=== PATIENT | male | born 1970 | race Caucasian/White ===

== ENCOUNTER 2016-11-24 06:52 | Inpatient (IN) | payer MEDICARE ==
[2016-11-22 10:49] LABS: HEMATOCRIT 41.6 % (40.0-51.0); HEMOGLOBIN 14.8 g/dL (13.6-17.8)
[2016-11-22 11:02] LABS: BUN (BLOOD UREA NITROGEN) 17 MG/DL (6-23); CALCIUM, SERUM 8.6 MG/DL (8.5-10.4); CHLORIDE, SERUM 97 MMOL/L (96-112); CO2 (CARBON DIOXIDE) 27 MMOL/L (24-34); CREATININE 1.16 MG/DL (0.70-1.30); GFR AFRICAN AMERICAN 87 ML/MIN (>=60); GFR NON AFRICAN AMERICAN 75 ML/MIN (>=60); POTASSIUM, SERUM 4.2 MMOL/L (3.5-5.3); SODIUM, SERUM 135 MMOL/L (135-148)
[2016-11-22 11:05] LABS: GLUCOSE, SERUM 257 MG/DL (60-99)
--- NOTE | ~2016-11-24 | CN ---
Consultation Report [facility] [address]. [address] NAME: BYRON ROBERTS JR : 70 STATUS : ADM IN PAT#: [id number] AGE: 46 ADM/REG DATE : 11/24/16 MR#: [id number] REPORT SERV DATE: 11/24/16 DICTATED BY: MAREK MOMIN DATE: 11/24/16 REPORT STATUS : Draft TRANSCRIBED BY: MODL DATE: 11/24/16 CONSULT DATE OF CONSULTATION: REASON FOR CONSULTATION: Diabetes management. HISTORY OF PRESENT ILLNESS: The patient is a 46-year-old male who presented after having complaints of mid back radiating pain with numbness in the thoracic spine who has been followed as an outpatient, level ranges from mild to severe at 9/10 at its worst, has tried supportive treatments, is located mid back and numbness going down, has performed PT with [facility] but has been pain limiting on progress, occasional complaints of bowel and bladder issues with occasional incontinence and taking Valium, Klonopin, baclofen for pain control including opioids without significant improvement. For his diabetes, the patient reports that he is typically well controlled with his metformin, range around 150s to 140s. In his opinion, this is well controlled. He says when he has pain episodes, it goes up to 200+ but when he drinks soda pops and even with other not diet sodas, he still does not have any problems with keeping the blood sugar under control. The patient does take occasional sliding scale insulin and metformin and knows when he is getting high blood sugars because he gets sweaty, has not had too many episodes with low blood sugars. PAST MEDICAL HISTORY: Noted for hypertension, nephrolithiasis, fibromyalgia, type 2 diabetes, coronary artery disease with stent in 2012, hypertestosteronism, PTSD, DJD, and incarcerated ventral hernia. REVIEW OF SYSTEMS: A 10-point review of systems negative except that noted in the HPI. PAST SURGICAL HISTORY: Back fusion, shoulder tumor history, appendectomy, gallbladder, and rectal fissure surgery. FAMILY HISTORY: Cancer, diabetes, and ND. SOCIAL HISTORY: Has children. Reports . No tobacco, alcohol, or illicits. PHYSICAL EXAMINATION: VITAL SIGNS: Blood pressure 148/89, O2 of 96 on 3 L, temperature 98.8, respirations 18, and pulse 98. GENERAL: Obese. Mild discomfort from pain. HEENT: Head normocephalic. Eyes no scleral icterus. EOMI. ENT, nares patent. Moist mucous membranes. CHEST: Chest wall does have a surgical site with drain. NECK: No JVD. LUNGS: Clear to auscultation. No wheezes or rales. Consultation Report [facility] [address] [place] [address] NAME: BYRON ROBERTS JR : 70 STATUS : ADM IN [facility]#: [id number] AGE: 46 ADM/REG DATE : 11/24/16 MR#: [id number] REPORT SERV DATE: 11/24/16 DICTATED BY: MAREK MOMIN DATE: 11/24/16 REPORT STATUS : Draft TRANSCRIBED BY: DEZ DATE: 11/24/16 CARDIAC: Mildly tachycardic but no rubs or gallops. No pedal edema. GI: Soft, nontender, nondistended. Bowel sounds positive. : Deferred. MUSCULOSKELETAL: Moves all extremities x4. Sensation still grossly intact. PSYCHIATRIC: Appropriate mood and affect. LABS: Blood sugars today ranging from 194 to 261. ASSESSMENT AND PLAN: 1. Diabetes type 2. 2. Hypertension. 3. Low back pain. 4. Anxiety. 5. Chronic ischemic history. 6. Patient for diabetes type 2. Sliding scale insulin. Hold metformin. Check A1c. Diabetic education. Start Levemir while inpatient and titrate needs with sliding scale level 2 until p.o. fully as tolerated. We will need further education about diet requirements. 7. Hypertension, monitor, restart lisinopril and amlodipine. Increase the home dose when confirmed with pharmacy. 8. Low back pain and radiculopathy per primary, does have p.r.n. IV and p.o. pain medications and on prior multiple benzos on arrival. Currently mental status clear. Blood pressure-actually mildly hypertensive. 9. Anxiety. Continue home medications as vitals tolerate. 10.Questionable ischemic changes history, has had coronary artery disease and stent placed in 2012 with Cardiology in [facility], currently in transition before re-establishing care with local cardiology. We will defer to primary. We will check EKG and postop troponin. Denies any acute chest pain at this time. All questions answered with the patient at bedside. Care will be followed by Medicine team in a.m. DDN/MODL Marek Momin MD / [id number] CC: Tello Briscoe II, M.D.
--- NOTE | ~2016-11-24 | OP ---
Record Of Operation [facility] [address] [place]. [address] NAME: BYRON ROBERTS JR : 70 STATUS : ADM IN PAT#: [id number] AGE: 46 ADM/REG DATE : 11/24/16 MR#: [id number] REPORT SERV DATE: 11/26/16 DICTATED BY: CARIDAD BRISCOE II DATE: 11/26/16 REPORT STATUS : Draft TRANSCRIBED BY: MODRoni DATE: 11/26/16 DATE OF PROCEDURE: 11/24/2016 PREOPERATIVE DIAGNOSES: 1. Left upper extremity radiculopathy with herniated nucleus pulposus. 2. C5-6 and C6-7 foraminal stenosis. POSTOPERATIVE DIAGNOSES: 1. Left upper extremity radiculopathy with herniated nucleus pulposus. 2. C5-6 and C6-7 foraminal stenosis. PROCEDURE: 1. C5-6, C6-7 total disk replacement. 2. Use of the microscope. SURGEON: Caridad Briscoe M.D. FLUIDS: 1 L lactated Ringer's. ESTIMATED BLOOD LOSS: 50 mL. DRAINS: One drain. COMPLICATIONS: None. IMPLANTS: LDR Mobi-C. PREOPERATIVE HISTORY: This is a friendly, 46-year-old gentleman, who reports neck pain with severe pain radiating into the left periscapular region and down the arm consistent with radiculopathy. We discussed the pros and cons of surgery. We discussed the pros and cons of ACDF versus total disk replacement. We discussed the data regarding the total disk replacement versus ACDF. Overall, I felt both were good options for him but some of the data seems to suggest that the total disk replacement may be indeed superior on a two-level patient. DESCRIPTION OF PROCEDURE: After informed consent was obtained, the patient was brought to the operating room at his request and general anesthesia achieved. He was placed in supine position. The neck and iliac crest were prepped and draped in a sterile fashion. A right- sided longitudinal incision was performed followed by subperiosteal exposure following completion of the retropharyngeal approach. The belt line feeder retractors were placed underneath the longus colli muscles. The [place] pins were placed from C5-C7. The microscope was now brought into place. Under microscopic visualization, the C6-7 level was now addressed with diskectomy. The endplates were now prepared. The pituitary rongeurs, Kerrison rongeurs, and the curettes were then used to prepare the disk space using standard technique. The concavity of C6 was Record Of Operation [facility] [address] [place]. [address] NAME: BYRON ROBERTS JR : 70 STATUS : ADM IN PAT#: [id number] AGE: 46 ADM/REG DATE : 11/24/16 MR#: [id number] REPORT SERV DATE: 11/26/16 DICTATED BY: CARIDAD BRISCOE II DATE: 11/26/16 REPORT STATUS : Draft TRANSCRIBED BY: MODL DATE: 11/26/16 maintained. The posterior vertebral body osteophytes were now removed. The posterior longitudinal ligament was also removed to further decompress the canal and foramen and also to ensure the adequacy of the decompression. The system was then trialed and the appropriate size total disk replacement chosen and placed at C6-7. Multiplanar imaging was able to visualize the C6-7 space despite his large shoulders. This was appropriately placed. Next, the [place] pin was removed at C7, and we proceeded with a similar technique at C5-6 with removal of the disk and preparation of the endplates. The posterior ligament was removed and the disk material removed from the foramen. The area was now trialed under fluoroscopy. The appropriate size total disk replacement was now chosen and placed at C5-6. Again, this was confirmed radiographically with fluoroscopy. Acceptable position was again confirmed of both endplates. At this point, a deep drain was placed for the fact that we were going to keep him at least one night. I had put this in place for preparation of any potential seroma. Overall, the area was hemostatic prior to closure. The area was now closed and the patient was extubated and transferred to PACU in stable condition. I spoke with his mother postoperatively and discussed the procedure as well as the postoperative plan. MELANIE/DEZ Caridad Briscoe II, M.D. / [id number] CC: Roe Hillman II, KELLY R.
--- NOTE | ~2016-11-24 | DS ---
Discharge Summary [facility] [address] [place]. [address] NAME: BYRON ROBERTS JR : 70 STATUS : DIS IN PAT#: [id number] AGE: 46 ADM/REG DATE : 11/24/16 MR#: [id number] REPORT SERV DATE: 12/06/16 DICTATED BY: CARIDAD BRISCOE II DATE: 12/05/16 REPORT STATUS : Draft TRANSCRIBED BY: DEZ DATE: 12/05/16 Data Collection from hospitalization DISCHARGE DIAGNOSES: 1. Left upper extremity radiculopathy with herniated nucleus pulposus. 2. C5-6 and C6-7 foraminal stenosis. 3. Hypertension. 4. Type 2 diabetes. 5. Nephrolithiasis. 6. Fibromyalgia. 7. Coronary artery disease. 8. Hypertestosteronism. 9. Posttraumatic stress disorder. 10.Degenerative joint disease. 11.Incarcerated ventral hernia. CONSULTATION: Dr. Julio Perez. PROCEDURES: C5-6, C6-7 total disk replacement, use of microscope, 11/24/2016. PATHOLOGY: Bone and soft tissue, cervical spine. Laminectomy-fibrocartilage consistent with intervertebral disk. Fragment of benign bone. DISCHARGE MEDICATIONS: Norvasc 10 mg daily, aspirin 81 mg daily, Lioresal 10 mg three times a day as needed, Klonopin 0.5 mg four times a day as needed, Valium 5 mg three times a day as needed or 5-10 mg every six hours as instructed, Sinequan 25 mg at bedtime, Prozac 80 mg at bedtime, Neurontin 300 mg three times a day as needed, Busy 7.5/325 one tablet three times a day as needed, Dilaudid 4 mg every four hours as needed, Novolin R as instructed, Zestril 10 mg twice a day, Glucophage 500 mg twice a day, Phenergan 25 mg every six hours as needed, Ambien 10 mg at bedtime. CONDITION AT DISCHARGE: Stable. DISPOSITION: The patient was discharged home on an 1800-calorie diabetic diet with activities as instructed. He would follow up with me, 12/21/2016. HOSPITAL COURSE: This is a 46-year-old man, who complained of thoracic related symptoms. He had stated that his pain level had been a 9/10. The pain was located in his mid back and radiates down to the low back. He did feel some numbness in his thoracic spine. The patient was found to have left upper extremity radiculopathy with herniated nucleus pulposus. He has C5-6 and C6-7 foraminal stenosis. Treatment options were discussed and it was elected to proceed with surgical intervention. He was admitted to the hospital at this time for further evaluation and treatment. Upon admission, the patient was taken to the operating room, where he underwent the above- mentioned procedure. He tolerated this well and there were no complications. Postoperatively, he was seen by Dr. Julio Perez regarding diabetes management. The patient reports that he is typically well controlled with his metformin. In his opinion, his Discharge Summary [address] [place]. [address] NAME: BYRON ROBERTS : 70 STATUS : DIS IN PAT#: [id number] AGE: 46 ADM/REG DATE : 11/24/16 MR#: [id number] REPORT SERV DATE: 12/06/16 DICTATED BY: CARIDAD BRISCOE II DATE: 12/05/16 REPORT STATUS : Draft TRANSCRIBED BY: DEZ DATE: 12/05/16 diabetes is well controlled. Sliding scale insulin was going to be started. Metformin was held. We were going to check a hemoglobin A1c. He would undergo diabetes education. Levemir would be started while he was an inpatient and we would titrate needs with sliding scale level 2 until he could tolerate oral intake. Lisinopril and amlodipine would be restarted for his hypertension. We would increase the home dose when confirmed with pharmacy. His home anxiety medications were continued. EKG and postop troponin were going to be checked. On postop day #1, he had no shortness of breath. He complained of some insomnia. He had no other complaints. His blood sugars were still elevated. Levemir and sliding scale insulin level 2 were continued. Urinalysis was going to be checked. He had leukocytosis. On postop day 2, his white count was 12.2. He had no new complaints. Levemir was continued. Leukocytosis was improving. Discharge planning was performed. On 11/27/2016, he was able to get out of bed well. Discharge instructions were given. Due to his improved and stable condition, he was discharged home with the above-stated instructions. Information collected by: Danae Rodriguez I submit the above information as my discharge summary. NEMESIO/DEZ Caridad Briscoe II, M.D. / [id number] CC: Roe Hillman II, KELLY R
[~2016-11-24 06:52] MED LIST: AFRIN15 NAS; AMB10 PO; ASAB PO; B121000P IM; B121000P PO; CELEXA20 PO; DEPO-TESTOS100 MG/ML IM; DOX25 PO; FLEX PO; GLUCOPHAGE1000 MG PO; GLUCOTROL5 PO; GLUCPH PO; HUMALOG; HYDROCHLOROT25 MG PO; INSNOVN SC; INSNOVR; INSNOVR SC; INSULIN SC; KDUR10 PO; KLONO1 PO; KLONO2 PO; KLONO5 PO; LANTUS; LIDODERM T; LIOR10 PO; LIPITOR40 PO; LOP50 PO; LORTAB10 PO; MELATONIN5 M1 PO; MEP50TAB PO; METHOC500B PO; MSIMMR15 PO; MULTIPLE VIT PO; NEBULIZER SOLUTION INH; NORCO1 TA2 PO; NORV10 PO; NORV5 PO; NUCYNTA; NUCYNTA100 MG PO; PAXIL30 MG PO; PCET PO; PERCOCET1 TA4 PO; PHENERGAN PO; PR25 PO; PRIN20 PO; PROAIR HFA INH; PROZAC40 MG PO; RISP2 PO; SEROQUEL1C PO; STERAPRED5 MG; SYN.025B PO; TESTOSTERONE IM; TOPXL100 PO; TOPXL50 PO; TRAZODONE150 MG PO; TUMSROLL PO; V5 PO; VALIUM10 MG PO; VIST50 PO; VITAMIN B-12; VITAMIN C; ZESTRIL10 MG PO; ZESTRIL20 MG PO; ZESTRIL40 MG PO; ZOL50 PO; [UNRECOGNIZED DRUG - OTHER] OT
[2016-11-25 08:17] LABS: HEMATOCRIT 41.9 % (40.0-51.0); MEAN CORPUS HGB CONC 35.8 g/dL (32.0-36.0); MEAN CORPUSCULAR HEMOGLOB 33.3 pg (26.0-34.0); MEAN PLATELET VOLUME 9.6 fL (9.2-13.0); PLATELET COUNT 294 10/3/uL (150-400); RED CELL COUNT 4.51 10/6/uL (4.7-6.1)
[2016-11-25 08:18] LABS: MEAN CORPUSCULAR VOLUME 92.9 fL (80-100); WHITE BLOOD CELLS 17.2 10/3/uL (4.5-10.5)
[2016-11-25 08:19] LABS: MANUAL DIFF YES %
[2016-11-25 08:31] LABS: BUN (BLOOD UREA NITROGEN) 18 MG/DL (6-23); CALCIUM, SERUM 8.7 MG/DL (8.5-10.4); CHLORIDE, SERUM 99 MMOL/L (96-112); CO2 (CARBON DIOXIDE) 26 MMOL/L (24-34); CREATININE 1.02 MG/DL (0.70-1.30); GFR AFRICAN AMERICAN 102 ML/MIN (>=60); GFR NON AFRICAN AMERICAN 88 ML/MIN (>=60); GLUCOSE, SERUM 271 MG/DL (60-99); SODIUM, SERUM 135 MMOL/L (135-148); TROPONIN I <0.02 NG/ML (<0.05)
[2016-11-25 08:34] LABS: POTASSIUM, SERUM 4.6 MMOL/L (3.5-5.3)
[2016-11-25 08:53] LABS: BAND NEUTROPHILS 2 %; LYMPHOCYTES 11 %; LYMPHOCYTES ABSOLUTE (CALC) 1.89 10/3/uL (0.67-4.30); MONOCYTES 9 %; MONOCYTES ABSOLUTE (CALC) 1.55 10/3/uL (0.21-1.20); NEUTROPHILS ABSOLUTE (CALC) 13.76 10/3/uL (2.02-8.40); PLATELET ESTIMATE ADQ (ADEQUATE); RBC MORPHOLOGY NORM (NORMAL); SEGMENTED NEUTROPHIL (0) 78 %; TOTAL NUCLEATED CELLS 100
[2016-11-25 17:02] LABS: ASCORBIC ACID (UR NOT ORDER) NEG (NEG); BILIRUBIN, URINE NEGATIVE (NEG); KETONE, URINE NEGATIVE (NEG); LEUKOCYTE ESTERASE(NOT OR NEG (NEG); WBC (NOT ORDERED) (RFLEX) < 1 (0-5)
[2016-11-26 05:00] LABS: BASOPHILS 0.4 %; BASOPHILS ABSOLUTE 0.05 10/3/uL (0.0-0.16); EOSINOPHILS 0.8 %; HEMATOCRIT 43.5 % (40.0-51.0); IMMATURE GRANULOCYTES 1.3 %; IMMATURE GRANULOCYTES ABSOLUTE 0.16 10/3/uL (0.0-0.11); LYMPHOCYTES 27.8 %; LYMPHOCYTES ABSOLUTE 3.39 10/3/uL (0.67-4.30); MEAN CORPUS HGB CONC 34.5 g/dL (32.0-36.0); MEAN CORPUSCULAR HEMOGLOB 32.7 pg (26.0-34.0); MEAN CORPUSCULAR VOLUME 94.8 fL (80-100); MEAN PLATELET VOLUME 9.8 fL (9.2-13.0); MONOCYTES 9.1 %; MONOCYTES ABSOLUTE 1.11 10/3/uL (0.21-1.20); NEUTROPHILS 60.6 %; PLATELET COUNT 275 10/3/uL (150-400); RBC DISTRIBUTION WIDTH 12.8 % (12.0-16.0); RED CELL COUNT 4.59 10/6/uL (4.7-6.1); WHITE BLOOD CELLS 12.2 10/3/uL (4.5-10.5)
[2016-11-26 05:01] LABS: MANUAL DIFF NO %
[2016-11-26 05:13] LABS: BUN (BLOOD UREA NITROGEN) 18 MG/DL (6-23); CALCIUM, SERUM 8.6 MG/DL (8.5-10.4); CHLORIDE, SERUM 98 MMOL/L (96-112); CO2 (CARBON DIOXIDE) 26 MMOL/L (24-34); CREATININE 0.96 MG/DL (0.70-1.30); GFR AFRICAN AMERICAN 109 ML/MIN (>=60); GFR NON AFRICAN AMERICAN 94 ML/MIN (>=60); GLUCOSE, SERUM 234 MG/DL (60-99); POTASSIUM, SERUM 4.3 MMOL/L (3.5-5.3); SODIUM, SERUM 135 MMOL/L (135-148)
[2016-11-27] MEDS ORDERED: DIL4TAB PO (07:54)
[2016-11-27] MEDS ORDERED: NEUR300 PO (07:54)
[2016-11-27] MEDS ORDERED: V5 PO (07:55)
[2016-12-12] MEDS ORDERED: PR25 PO (02:16)
[2016-12-12] MEDS ORDERED: NORV10 PO (02:17)
[2016-12-12] MEDS ORDERED: NEUR300 PO (02:17)
[2016-12-12] MEDS ORDERED: PRIN10 PO (02:17)
[2016-12-12] MEDS ORDERED: DIL4TAB PO (02:18)
[2016-12-12] MEDS ORDERED: V5 PO (02:23)
[2016-12-12] MEDS ORDERED: NORCO1 TA2 PO (02:25)
[2016-12-12] MEDS ORDERED: AMB10 PO (02:25)
[2016-12-12] MEDS ORDERED: DOX25 PO (02:26)
[2016-12-12] MEDS ORDERED: PROZAC40 MG PO (02:26)
[2016-12-12] MEDS ORDERED: KLONO5 PO (02:27)
[2016-12-12] MEDS ORDERED: LIOR10 PO (02:28)
[2016-12-12] MEDS ORDERED: GLUCPH PO (02:29)
[2016-12-12] MEDS ORDERED: LANTUSCART SC (02:31)
[2016-12-13] MEDS ORDERED: PYR200 PO (09:15)
== END 2016-11-27 13:53 | disposition home or self-care (01) | DRG 518 ==
LOC: SDC/OF 06:52 → PACU 12:50 → 3SO 14:46
PROVIDERS: Orthopaedic Surgery; Student in an Organized Health Care Education/Training Program
PROC: 0RR30JZ Replacement of Cervical Vertebral Disc with Synthetic Substitute, Open Approach (ICD-10-PCS; principal; 2016-11-24 08:45)
DX: M50.122 Cervical disc disorder at C5-C6 level with radiculopathy (principal); I10 Essential (primary) hypertension; E11.9 Type 2 diabetes mellitus without complications; F41.9 Anxiety disorder, unspecified
CPT/HCPCS: 71010; 76000; 80048; 81001; 82962; 83036; 83735; 84484; 85014; 85018; 85025; 87641; 88304; 93005; A9270-GY; C1889; J0360; J0690; J1170; J2250; J2270; J2405; J2550; J2710; J3010; J3370

== ENCOUNTER 2016-12-22 06:51 | Emergency (ER) | payer MEDICARE ==
[2016-12-22 06:00] LABS: HEMATOCRIT 39.8 % (40.0-51.0); HEMOGLOBIN 14.2 g/dL (13.6-17.8); MEAN CORPUS HGB CONC 35.7 g/dL (32.0-36.0); MEAN CORPUSCULAR HEMOGLOB 32.6 pg (26.0-34.0); MEAN CORPUSCULAR VOLUME 91.5 fL (80-100); MEAN PLATELET VOLUME 9.9 fL (9.2-13.0); PLATELET COUNT 273 10/3/uL (150-400); RBC DISTRIBUTION WIDTH 12.6 % (12.0-16.0); RED CELL COUNT 4.35 10/6/uL (4.7-6.1); WHITE BLOOD CELLS 8.6 10/3/uL (4.5-10.5)
[2016-12-22 06:01] LABS: MANUAL DIFF YES %
[2016-12-22 06:06] LABS: PARTIAL THROMBO TIME 24.4 SEC (22.5-37.2); PROTIME (NOT ORD) 13.2 SEC (12.0-14.5)
[2016-12-22 06:15] LABS: ALBUMIN 3.6 G/DL (3.5-5.0); BUN (BLOOD UREA NITROGEN) 18 MG/DL (6-23); CALCIUM, SERUM 8.7 MG/DL (8.5-10.4); CHEST PAIN PROFILE TAT 0 Hrs 21 Mins; CHLORIDE, SERUM 99 MMOL/L (96-112); CO2 (CARBON DIOXIDE) 23 MMOL/L (24-34); CREATININE 1.18 MG/DL (0.70-1.30); GFR AFRICAN AMERICAN 85 ML/MIN (>=60); GFR NON AFRICAN AMERICAN 74 ML/MIN (>=60); GLUCOSE, SERUM 285 MG/DL (60-99); SGPT(ALT) 130 U/L (5-65); SODIUM, SERUM 135 MMOL/L (135-148); TOTAL BILIRUBIN 0.5 MG/DL (0-1.2); TOTAL PROTEIN 7.7 G/DL (6.0-8.5); TROPONIN I <0.02 NG/ML (<0.05)
[2016-12-22 06:16] LABS: POTASSIUM, SERUM 4.1 MMOL/L (3.5-5.3)
[2016-12-22 06:17] LABS: ALKALINE PHOSPHATASE 121 U/L (45-117); DIRECT BILIRUBIN < 0.1 MG/DL (0.0-0.4); INDIRECT BILIRUBIN(NOT ORDER) 0.4 MG/DL (0.1-0.9); SGOT(AST) 88 U/L (5-40)
[2016-12-22 06:24] LABS: ASCORBIC ACID (UR NOT ORDER) NEG (NEG); BILIRUBIN, URINE NEGATIVE (NEG); ER URINALYSIS TAT 0 Hrs 09 Mins; KETONE, URINE NEGATIVE (NEG); LEUKOCYTE ESTERASE(NOT OR NEG (NEG); NITRITE (URINE) POS (NEG); WBC (NOT ORDERED) (RFLEX) 25 (0-5)
[2016-12-22 06:29] LABS: BAND NEUTROPHILS 2 %; BASOPHILS 3 %; BASOPHILS ABSOLUTE (CALC) 0.26 10/3/uL (0.0-0.16); ER DIFF TAT 0 Hrs 35 Mins; IMMATURE GRANS ABSOLUTE (CALC) 0.17 10/3/uL (0.0-0.11); LYMPHOCYTES 23 %; LYMPHOCYTES ABSOLUTE (CALC) 1.98 10/3/uL (0.67-4.30); METAMYELOCYTES 2 %; MONOCYTES 5 %; MONOCYTES ABSOLUTE (CALC) 0.43 10/3/uL (0.21-1.20); NEUTROPHILS ABSOLUTE (CALC) 5.76 10/3/uL (2.02-8.40); SEGMENTED NEUTROPHIL (0) 65 %; TOTAL NUCLEATED CELLS 100
[2016-12-22 06:30] LABS: PLATELET ESTIMATE ADQ (ADEQUATE); RBC MORPHOLOGY NORM (NORMAL)
[2016-12-22 06:40] LABS: LACTATE 2.1 MMOL/L (0.3-2.4)
[~2016-12-22 06:51] MED LIST changes: +DIL4TAB PO; +LANTUSCART SC; +NEUR300 PO; +PRIN10 PO; +PYR200 PO
== END 2016-12-22 09:08 | disposition home or self-care (01) ==
LOC: ER 06:51
PROVIDERS: Emergency Medicine
DX: N39.0 Urinary tract infection, site not specified (principal); Z76.5 Malingerer [conscious simulation]; I10 Essential (primary) hypertension; E11.9 Type 2 diabetes mellitus without complications; Z87.442 Personal history of urinary calculi; Z95.5 Presence of coronary angioplasty implant and graft; Z88.8 Allergy status to other drugs, medicaments and biological substances; Z79.4 Long term (current) use of insulin; Z79.899 Other long term (current) drug therapy
CPT/HCPCS: 71010; 74176; 80048; 80076; 81001; 83605; 83690; 83735; 84145; 84484; 85025; 85610; 85730; 87040; 87086; 87328; 87329; 87493; 87493-59; 89055; 93005; 96374; 96375; 99285; A9270-GY; J1885; J2765

== ENCOUNTER 2017-01-08 22:56 | Inpatient (IN) | payer MEDICARE ==
--- NOTE | ~2017-01-08 | HP ---
History And Physical [facility] [address] [place]. [address] NAME: BYRON ROBERTS JR : 70 STATUS : ADM IN PAT#: [id number] AGE: 46 ADM/REG DATE : 01/09/17 MR#: [id number] REPORT SERV DATE: 01/09/17 DICTATED BY: LAURA PALOMARES DATE: 01/09/17 REPORT STATUS : Draft TRANSCRIBED BY: MODL DATE: 01/09/17 DATE OF ADMISSION: 01/09/2017 CHIEF COMPLAINT: A 46-year-old male with severe chronic polypharmacy, but now presenting with a host of complaints, most significant a prolonged multiple syncopal episodes. HISTORY OF PRESENT ILLNESS: The patient's history was obtained through an interview with the patient, coupled with review of [facility] medical records. The patient five weeks ago presented for a cervical spine surgery under the care Dr. Briscoe. He states that he has had difficult recovery from that surgery with increased need for his chronic pain and anxiety medications including benzodiazepines and narcotics. It is in this context that he also developed urinary obstruction about two weeks ago and was seen by Dr. Casimiro Vigil, urologist. He has had a difficult recovery over this last month and reports a 22-pound weight gain over that period of time despite having what he describes as a very poor appetite and almost daily nausea. But his worst complaint has been a recurrent syncope that he suffered over the last several days. He has developed new onset vertigo with a spinning of the room. He states that sometimes he is walking and he will fall over to the side and do things like bump into jimenez and then he becomes lightheaded as well. His worst syncopal episodes he describes it as collapsing and being completely unresponsive for 7 minutes as his family reports to him. Another significant complaint has been intractable nausea and vomiting. He states that the vomiting has occurred on a daily basis for several days now and it contributes to difficulty eating. He also describes diaphoresis, severe night sweats. He states that for several nights he has been waking up "wringing wet" and has to change his clothes. He also states that his diabetes has been difficult to control recently. For about a week, he has seldom seen a blood sugar of less than 300 or 400. He also will check his blood pressure at home and notes that it can get as high as 220/120. His pain complaints are multiple, but narrowing it down to two locations, he states that his neck hurts from his post-surgical site. He states that "it is at the bottom of his neck without radiation," a sharp aching, throbbing, quality pain, 8/10 severity. He also describes upper abdominal discomfort related to his nausea and vomiting. He describes the quality is "like a brick" a 9/10 severity. REVIEW OF SYSTEMS: Otherwise, a 14-point review of systems was obtained and was negative. History And Physical [address] [address] NAME: BYRON ROBERTS JR : 70 STATUS : ADM IN [facility]#: [id number] AGE: 46 ADM/REG DATE : 01/09/17 MR#: [id number] REPORT SERV DATE: 01/09/17 DICTATED BY: LAURA PALOMARES DATE: 01/09/17 REPORT STATUS : Draft TRANSCRIBED BY: DEZ DATE: 01/09/17 PAST MEDICAL HISTORY: 1. Diabetes, hemoglobin A1c of 7.8, 11/19/2016. 2. Coronary artery disease, status post stent placement at [facility]. 3. Nephrolithiasis and urinary obstruction with ureteral stent placement under the care of Dr. Vigil. 4. Chronic pain management and polypharmacy. 5. Anxiety with posttraumatic stress disorder. 6. Hypotestosteronism. 7. Fatty liver disease. 8. An uncertain endocrine disorder with a history of elevated prolactin and elevated TSH. 9. Negative Holter monitor in October 2016. PAST SURGICAL HISTORY: 1. Lumbar spine surgery x2. 2. Cervical spine surgery just about five weeks ago. 3. Shoulder surgery x3. 4. Appendectomy. 5. Cholecystectomy. 6. Rectal fissure. 7. Ventral hernia repair. 8. Rhinoplasty. 9. Knee surgery x2. ALLERGIES: TO LATEX AND ZOFRAN. SOCIAL HISTORY: No tobacco abuse. No alcohol abuse. He is . He has children, ages 9 and 12. He is a patient who is on disability. FAMILY HISTORY: Includes pancreatic cancer, diabetes, and heart disease. CURRENT MEDICATIONS: Include Norvasc 10 mg p.o. daily, baclofen 10 mg p.o. t.i.d., Klonopin 0.5 mg p.o. four times a day, Valium 5 mg p.o. t.i.d., doxepin 25 mg at bedtime, Prozac 40 mg p.o. b.i.d., Neurontin 300 mg p.o. t.i.d., hydrocodone 7.5 p.o. t.i.d., Dilaudid 2 mg to 4 mg every four hours, ibuprofen 800 mg p.o. t.i.d., Lantus 30 units subcutaneous twice a day, lisinopril 10 mg p.o. b.i.d., metformin 500 mg p.o. b.i.d., Seroquel 50 mg to 100 mg at bedtime, Phenergan p.r.n., Ambien 10 mg p.o. q.h.s. PHYSICAL EXAMINATION: VITAL SIGNS: Temperature 97.0, pulse 124, blood pressure 187/95, respiratory rate 26, O2 saturation 94% on room air. GENERAL: An ill-appearing male, describing many complaints, but he does not look in particular distress while I am evaluating him. HEENT: Pupils equal, round, and reactive to light. No conjunctival pallor. No scleral icterus. Nares are patent. Oropharynx is clear of obstruction. Moist mucous membranes. NECK: Trachea midline. No thyromegaly. LYMPHS: No cervical lymphadenopathy. No supraclavicular lymphadenopathy. History And Physical [address] [address] NAME: BYRON ROBERTS JR : 70 STATUS : ADM IN [facility]#: [id number] AGE: 46 ADM/REG DATE : 01/09/17 MR#: [id number] REPORT SERV DATE: 01/09/17 DICTATED BY: LAURA PALOMARES DATE: 01/09/17 REPORT STATUS : Draft TRANSCRIBED BY: DEZ DATE: 01/09/17 RESPIRATORY: Clear to auscultation at bases. No wheezes, rales, or rhonchi. Normal respiratory effort. CARDIOVASCULAR: Tachycardic. Regular rhythm. No murmurs, rubs, or gallops. No extremity edema is appreciated. ABDOMEN: Significant epigastric abdominal pain, but no guarding, no rebound. No hepatosplenomegaly. DERMATOLOGICAL: Warm and dry extremities. No pallor. No cyanosis. PSYCHIATRIC: Normal affect. Pleasant mood. He is alert and oriented x3. LABORATORY DATA: White blood cell count 7.1, hemoglobin 14, hematocrit 40, platelets 230. Sodium 136, potassium 4.0, chloride 103, bicarb 24, BUN 13, creatinine 1.32, glucose 344. INR 1.0. Lactic acid 0.8. Acetone level negative. Troponin negative. STUDIES: 1. Chest x-ray by my own evaluation shows no acute cardiopulmonary process. 2. EKG by my own evaluation shows sinus tachycardia, right axis deviation. T-wave inversions in leads 2, 3, and aVF. ASSESSMENT AND PLAN: 1. Vertigo, gait disturbance, possible drop attacks with syncope. With recent cervical spine surgery, I think it is reasonable to rule out vertebrobasilar disease with an MRA of the neck. We will also check orthostatics and check an MRI of the brain. 2. 22-pound weight gain over the last one or two months. Check cortisol level. Check thyroid level. There is this history of an unclear endocrine disorder with hypotestosteronism, elevated TSH, and elevated prolactin. I would like to check an MRI of the pituitary gland and recheck prolactin and TSH levels. 3. Urinary urgency. Check ultrasound of the bladder and kidneys. History of recent nephrolithiasis and stent placement. 4. Uncontrolled diabetes. Check hemoglobin A1c. It appears that the patient is likely noncompliant with his diabetes management, so we will resume his scheduled twice daily Levemir and place on aggressive sliding scale insulin and see how he responds to this. 5. Vomiting. I would like to check a gastric emptying study to begin evaluation. 6. Severe polypharmacy. Certainly, the explanation for almost all of the patient's complaints of this admission could be an overuse of multiple medications leading to these symptoms. The patient is on Klonopin, Valium, doxepin, baclofen, hydrocodone, Dilaudid, Phenergan, Ambien, and Seroquel. For now, I would like to simplify his benzodiazepines by holding Valium and Ambien and just continuing Klonopin alone. I would also like to simplify his narcotics by eliminating Dilaudid and reusing hydrocodone alone. KPL/MODL Laura Palomares M.D. History And Physical [address] [address] NAME: BYRON ROBERTS JR : 70 STATUS : ADM IN PAT#: [id number] AGE: 46 ADM/REG DATE : 01/09/17 MR#: [id number] REPORT SERV DATE: 01/09/17 DICTATED BY: LAURA PALOMARES DATE: 01/09/17 REPORT STATUS : Draft TRANSCRIBED BY: DEZ DATE: 01/09/17 / [id number] CC: Roe Nielsen KELLY R
--- NOTE | ~2017-01-08 | DS ---
Discharge Summary [facility] [address] [facility]. [address] NAME: BYRON ROBERTS JR : 70 STATUS : ADM IN [facility]#: [id number] AGE: 46 ADM/REG DATE : 01/09/17 MR#: [id number] REPORT SERV DATE: 01/13/17 DICTATED BY: TIMOTHY BROCK DATE: 01/13/17 REPORT STATUS : Draft TRANSCRIBED BY: MODRoni DATE: 01/13/17 ADMISSION DATE: 01/09/2017 DISCHARGE DATE: ADDENDUM: The patient is using at home Lantus 30 units twice a day. Since he ran out of the Lantus, we gave him prescription for Levemir 30 units subcu twice a day, and the patient was explained that he can use Levemir as a substitution for Lantus. Nurse, Eileen, called the patient and she told him that the Levemir can be used as a substitution for Lantus for his diabetes, and his diabetes was controlled. The patient understood. /DEZ Timothy Brock M.D. / [id number] CC: Roe Nielsen KELLY R
--- NOTE | ~2017-01-08 | EGD ---
EGD REPORT [facility] [address] [address] NAME: JERONIMO BLANCHARD JR : 70 STATUS : DIS IN PAT#: [id number] AGE: 46 ADM/REG DATE : 01/09/17 MR#: [id number] REPORT SERV DATE: 01/29/17 DICTATED BY: NOAM ZHANG DATE: 01/29/17 REPORT STATUS : Draft TRANSCRIBED BY: [facility] DATE: 01/29/17 Endoscopy Center Patient Name: Jeronimo Blanchard Date of : 1970 Attending MD: NOAM ZHANG MD Procedure Date No Time: 01/13/2017 Procedure: Upper GI endoscopy Indications: Nausea with vomiting Medicines: Propofol per Anesthesia Complications: No immediate complications. Procedure: Pre-Anesthesia Assessment: - ASA Grade Assessment: III - A patient with severe systemic disease. After obtaining informed consent, the endoscope was passed under direct vision. Throughout the procedure, the patient's blood pressure, pulse, and oxygen saturations were monitored continuously. The GIF H190 [id number] was introduced through the mouth, and advanced to the third part of duodenum. The upper GI endoscopy was accomplished without difficulty. The patient tolerated the procedure well. Findings: The cardia and gastric fundus were normal on retroflexion. The esophagus was normal. The stomach was normal. The examined duodenum was normal. Impression: - Normal esophagus. - Normal stomach. - Normal examined duodenum. Procedure Code(s): --- Professional --- 90795, Esophagogastroduodenoscopy, flexible, transoral; diagnostic, including collection of specimen(s) by brushing or washing, when performed (separate procedure) Diagnosis Code(s): --- Professional --- R11.2, Nausea with vomiting, unspecified CPT copyright 2013 [place] [employer]. All rights reserved. The codes documented in this report are preliminary and upon entry level receptionist review may be revised to meet current compliance requirements. EGD REPORT [facility] [address] [address] NAME: JERONIMO BLANCHARD : 70 STATUS : DIS IN PAT#: [id number] AGE: 46 ADM/REG DATE : 01/09/17 MR#: [id number] REPORT SERV DATE: 01/29/17 DICTATED BY: NOAM ZHANG DATE: 01/29/17 REPORT STATUS : Draft TRANSCRIBED BY: [employer] DATE: 01/29/17 NOAM ZHANG MD 01/13/2017 10:15 AM This report has been signed electronically. Number of Addenda: 0 Note Initiated On: 01/13/2017 9:12 AM Scope Withdrawal Time 0 hours 0 minutes 0 seconds [address] [address]
--- NOTE | ~2017-01-08 | EEG ---
Electroencephalogram [facility] [address] [place]. [address] NAME: BYRON ROBERTS JR : 70 STATUS : ADM IN PAT#: [id number] AGE: 46 ADM/REG DATE : 01/09/17 MR#: [id number] REPORT SERV DATE: 01/10/17 DICTATED BY: DATE: REPORT STATUS : Draft TRANSCRIBED BY: MODL DATE: 01/10/17 CLINICAL INDICATION: Loss of consciousness episode. DISCUSSION: This EEG was performed using 10/20 electrode placement system. During the EEG study, symmetric background activity was noted with predominant occipital rhythm of roughly 10 to 12 hertz. Photic stimulation was performed with appropriate driving response. Hyperventilation was not performed secondary to the patient's underlying medical condition. During the EEG study, the patient achieved drowsy, stage I and II sleep with appropriate sleep spindles with K-complexes as well as vertex waves. No focal abnormality, seizure activity, or seizure discharge was otherwise noted. The patient does not demonstrate any clinical seizures or loss of consciousness episode during the EEG study. INTERPRETATION: This EEG study obtained during awake, drowsy as well as stage I and II sleep may be considered within normal limits. No focal abnormality, seizure activity, or seizure discharge was otherwise noted. Clinical correlation is recommended. [facility]/MODRoni Lenin Espino MD / [id number] CC: Roe Nielsen Kelly R
--- NOTE | ~2017-01-08 | DS ---
Discharge Summary [facility] [address] [place]. [address] NAME: BYRON ROBERTS JR : 70 STATUS : ADM IN [facility]#: [id number] AGE: 46 ADM/REG DATE : 01/09/17 MR#: [id number] REPORT SERV DATE: 01/13/17 DICTATED BY: TIMOTHY BROCK DATE: 01/13/17 REPORT STATUS : Draft TRANSCRIBED BY: MODRoni DATE: 01/13/17 ADMISSION DATE: 01/09/2017 DISCHARGE DATE: 01/13/2017 DIAGNOSES ON ADMISSION: 1. Vertigo and gait disturbance, possible drop attacks, with possible syncope. 2. Recent cervical spine surgery. 3. 22 pounds weight gain, check TSH. 4. Urinary urgency, check ultrasound of bladder and kidney, history of recent nephrolithiasis, and stent placement. 5. Diabetes mellitus, uncontrolled. 6. Vomiting, gastric emptying study to check. 7. Severe polypharmacy, possible drop attacks, secondary to severe polypharmacy and over use of his medications Dilaudid, Phenergan, and Ambien. DIAGNOSES ON DISCHARGE: 1. Headache present on admission, improved, normal workup, negative MRI, and negative electroencephalography. 2. Chronic back pain, improved. 3. Unwitnessed vomiting, normal gastric emptying study, able to eat and drink, and negative upper endoscopy, normal. 4. Liver enzymes in the normal range. 5. Normal ultrasound of the kidney and bladder. 6. No evidence of urinary tract infection. 7. Multiple unrelated complaints. 8. History of drug-seeking behavior in the past. The patient was requesting a combination of Dilaudid and Phenergan to be given intravenously, refused other medications such as Toradol. 9. Polypharmacy, reduce pain medications, possible syncopal episode or dizziness, secondary to pain medications. 10.Normal cardiac telemetry strip without any evidence of abnormality. IMAGING STUDIES DONE DURING THIS HOSPITALIZATION: 1. MRI of the cervical spine, status post anterior C5-C6 and C6-C7 posterior fusion in the upper thoracic spine. 2. MRI of the lumbar spine, no acute abnormality of the lumbar spine. 3. No acute abnormality in the cervical spine. 4. MRI and MRA of the head and neck, no acute abnormalities evaluated by Dr. Espino neurologist. 5. Electroencephalography, no abnormal activity. PROCEDURES: Upper endoscopy done by Dr. Gardner on 01/13/2017, no abnormality. Normal telemetry strip. CONSULTANTS ON THE CASE: Dr. Espino of Neurology, and Dr. Gardner and Dr. Chand of Discharge Summary [address] [address] NAME: BYRON ROBERTS JR : 70 STATUS : ADM IN [facility]#: [id number] AGE: 46 ADM/REG DATE : 01/09/17 MR#: [id number] REPORT SERV DATE: 01/13/17 DICTATED BY: TIMOTHY BROCK DATE: 01/13/17 REPORT STATUS : Draft TRANSCRIBED BY: DEZ DATE: 01/13/17 Gastroenterology. PERTINENT LABORATORY RESULTS: His liver enzymes; AST was 34 and ALT was 47. HISTORY OF PRESENT ILLNESS: Briefly, this is a 46-year-old male, who was admitted by Dr. Ortiz on 01/09/2017, with complaints of headache, back pain, and prolong multiple syncopal episodes according to Dr. Ortiz's dictation. HOSPITAL COURSE: Briefly, the patient was admitted to the hospital and he expressed multiple unrelated complaints. Initially, he was telling that he is having pain in his back, as well as in the neck, in the head, and then he was complaining that he is having back pain in the lower back. For his headache he was evaluated by neurologist Dr. Espino, and she did extensive workup and did not find any reason for the patient to have this headache. Although, the patient was complaining of headaches. He was joyfully nicely speaking with everybody, and did not look like he is in distress. He also reported that he had drop attacks or syncopal episodes. He said that he is not driving because of these, but we never witnessed any episodes like this. He was telling me that he has some episodes of vertigo and lightheadedness, and we checked his orthostatics, and he was not orthostatic. His blood pressure on lying was 128/74, heart rate 81, in sitting 141/81, heart rate 84, standing 147/91, heart rate 99. He also was telling that he has hypertension, but his blood pressure all the time was staying in the range 120/70, 130/60 on his current blood pressure medication regimen. The patient was repeatedly asking to receive the intravenous Dilaudid with combination with intravenous Phenergan. He refused Ketoralac, he refused other medications, he told me that nothing helps his pain, and only intravenous Dilaudid. The next day, when his neurological workup was completed and he was supposed to go home, he told me that he had episode of food regurgitation and mid abdominal pain, and he said that he is afraid he may have a stomach problem, and he told that he needs to have upper endoscopy. I told him that he had upper endoscopy before, but he said that he needs to have it now because he is having stomach discomfort and nausea. He had a gastric emptying study on admission, which was normal. I consulted battery container finishing hand. He was seen before by Dr. Houston, but he was fired from Dr. Houston's service, so, we consulted Dr. Chand, who evaluated the patient, he basically decided to do upper endoscopy. He had upper endoscopy today which was normal and the patient was told that he is ready to go home and we are going to stop his Dilaudid. The patient was stable. He said that during upper endoscopy somebody told him that he may need to have coronary arteriogram. The patient did not have chest pain, and he was very stable, and his troponin was negative, as well as EKG was unremarkable. The patient was explained that he does not need coronary arteriography and he was explained that any intervention can cause a lot of problems and it shouldn't be done unless they are necessary, he understood these. The patient said that he had history of stent placed in [facility] in [facility] in 2012. The patient was recommended to follow up with his superintendent of generation and he was recommended his primary care physician to arrange for these. I reviewed old records and it looks like when patient was hospitalized here previously in 2016, he had a similar problem, he was also requesting combination with Dilaudid and Phenergan. At that time, it was suspected by Dr. Badillo and his nurse practitioner Colby that he may have a conversion disorder or anxiety disorder which could be combined with drug seeking behavior. Because at that time also he was requesting multiple workups. At that time also, he was asking for combination with Dilaudid with Phenergan. As well as he told Discharge Summary [facility] [address] [place]. [address] NAME: BYRON ROBERTS JR : 70 STATUS : ADM IN PAT#: [id number] AGE: 46 ADM/REG DATE : 01/09/17 MR#: [id number] REPORT SERV DATE: 01/13/17 DICTATED BY: TIMOTHY BROCK DATE: 01/13/17 REPORT STATUS : Draft TRANSCRIBED BY: DEZ DATE: 01/13/17 that he is enjoying to stay in the hospital and he would rather stay in the hospital than go home. The patient also has history of posttraumatic stress disorder and I think this could be also related to his posttraumatic stress disorder which he had in the past and he follows with psychiatrist. So, it was strongly recommended the patient to follow up with psychiatrist which he sees periodically. As well as his blood sugar has been controlled and he was recommended to continue his blood sugar lowering medications. Overall, the patient was doing very well. Once again, he was told that he shouldn't drive and he does not drive. He was recommended to continue Norvasc 10 mg daily, Prozac 40 mg b.i.d., Neurontin 300 three times a day, lisinopril 10 mg p.o. b.i.d., Phenergan 25 mg p.o. q.6 hours p.r.n. for nausea. The patient was recommended to discontinue Ambien. Doxepin 15 mg p.o. at bedtime p.r.n. per his psychiatrist. The patient was recommended to stop ibuprofen and he told me that he does not take it. Metformin 500 mg p.o. twice a day, Lantus 30 units twice a day, Seroquel 50 to 100 mg at bedtime, baclofen 10 mg p.o. three times a day as needed. The patient was told to stop Valium. The patient was told to stop hydrocodone. The patient was told to taper his Klonopin and he takes 0.5 mg four times daily p.r.n. The patient was told to stop his Dilaudid. The patient was explained that combination of Valium and Klonopin can cause problems on him. The patient was also given Lidoderm patch prescription. The patient needs to follow up with his primary care physician, Celina Mao, in two weeks and with his psychiatrist Dr. Mendoza in a week or two. Also, he was recommended to follow up with [facility] as needed. Discharged in stable condition. MG/MODL Timothy Brock M.D. / [id number] CC: Roe Nielsen KELLY R
--- NOTE | ~2017-01-08 | CN ---
Consultation Report [facility] [address]. [address] NAME: BYRON ROBERTS JR : 70 STATUS : DIS IN PAT#: [id number] AGE: 46 ADM/REG DATE : 01/09/17 MR#: [id number] REPORT SERV DATE: 01/15/17 DICTATED BY: BYRON GARCIA DATE: 01/12/17 REPORT STATUS : Draft TRANSCRIBED BY: MODL DATE: 01/12/17 DATE OF CONSULTATION: HISTORY OF PRESENT ILLNESS: This is a 46-year-old white male I am seeing for Dr. Lamar, who presented initially with vertigo, gait disturbance, syncopal episode. He has had full evaluation by Neurology, which was unremarkable. Also approximately six-eight weeks ago, he had cervical spine surgery by Dr. Briscoe that has also been evaluated this hospitalization with negative workup. Also within the last few weeks, he had a kidney stone and had a ureteral stent placed and removed, and is unstable at the present time, followed by Dr. Vigil for that. He has had history of coronary artery disease status post stent. He has poorly controlled diabetes. He has PTSD. He has fatty liver. He is status post appendectomy, cholecystectomy, ventral hernia repair with recurrence, and knee surgery x2. He has had a gastric emptying study that was normal. He has been on Protonix. Hemoglobin 13.9, white count of 6300. SOCIAL HISTORY: Negative for EtOH or nicotine. FAMILY HISTORY: Negative for colon cancer. Positive for pancreatic cancer. PHYSICAL EXAMINATION: GENERAL: A well-developed and well-nourished white male, alert and oriented x3. HEENT: Anicteric. NECK: Sequelae of recent surgery. CHEST: Clear to percussion. HEART: Regular rate and rhythm. No murmur or gallop. ABDOMEN: Soft. Tender in the epigastrium. Bowel sounds are present. Ventral hernia recurrence noted. EXTREMITIES: Grossly intact Neurologic: Grossly intact. ASSESSMENT: 1. Nausea, vomiting, gastroesophageal reflux disease, and abdominal pain. Normal gastric emptying study. He has been on Protonix. 2. Admitted with vertigo and kidney stones. Negative neuro workup. Also had headaches as well. 3. Recent cervical disc surgery six-eight weeks ago with evaluation by Dr. Briscoe negative this admission. 4. Posttraumatic stress disorder. 5. Diabetes mellitus. 6. Fatty liver. 7. Coronary artery disease status post stent. 8. Recent kidney stone with stent. SUGGESTION: We will schedule EGD. Dr. Gardner is on-call this weekend. Dr. Lamar will Consultation Report [place] [address]. [address] NAME: BYRON ROBERTS REENA BURRIS : 70 STATUS : DIS IN PAT#: [id number] AGE: 46 ADM/REG DATE : 01/09/17 MR#: [id number] REPORT SERV DATE: 01/15/17 DICTATED BY: BYRON GARCIA DATE: 01/12/17 REPORT STATUS : Draft TRANSCRIBED BY: MODL DATE: 01/12/17 get back on Sunday. Risks and benefits of this procedure were explained to the patient and he consented to the above. Also discussed with Dr. Aggarwal who has been taking care over the last few days. DC/DEZ Byron Garcia M.D. / [id number] CC: Roe Nielsen MD Alan Shikoh, M.D.
--- NOTE | ~2017-01-08 | CN ---
Consultation Report [facility] [address] [place]. [address] NAME: BYRON ROBERTS JR : 70 STATUS : ADM IN PAT#: [id number] AGE: 46 ADM/REG DATE : 01/09/17 MR#: [id number] REPORT SERV DATE: 01/09/17 DICTATED BY: DATE: REPORT STATUS : Draft TRANSCRIBED BY: MODL DATE: 01/09/17 NEUROLOGY CONSULTATION DATE OF CONSULTATION: 01/09/2017 REASON FOR CONSULT: Headache. HISTORY OF PRESENT ILLNESS: This is a 46-year-old male who presented to [facility] on 01/09/2017, secondary to headache as well as cervical pain. The patient reports the symptoms started on 01/02/2017, described the pain as in posterior area, sharp, involving the posterior head region as well as cervical region with the patient denies headache, it is any worse or better with lying down but gets worse with standing up and ambulating. The patient otherwise reports mild nausea as well as episodic photophobia and phonophobia with the headache. Denies similar headache in the past and denies any recent history of fever but complains of chills. The patient does have recent history of a spine surgery, but otherwise no recent change in medication and no other significant illness recently. PAST MEDICAL HISTORY: The patient's past medical history is significant for hypertension, nephrolithiasis, fibromyalgia, type 2 diabetes, PTSD, degenerative joint disease, hypotestosteronism, coronary artery disease as well as previous history of hernia status post repair. ALLERGIES: THE PATIENT WAS NOTED TO HAVE MULTIPLE ALLERGIES INCLUDING NITROGLYCERIN, ZOFRAN, LATEX, AND DYE. FAMILY HISTORY: Significant for heart disease, diabetes, and pancreatic cancer. SOCIAL HISTORY: Denies tobacco, alcohol, or recreational drug usage. HOME MEDICATIONS: Consist of gabapentin; [place]; Dilaudid; Motrin; ; lisinopril; Glucophage; Norvasc; baclofen; Klonopin; Valium; Seroquel; Prozac; Phenergan; and as well as Ambien. REVIEW OF SYSTEMS: Negative except for those mentioned in the HPI. PHYSICAL EXAMINATION: VITAL SIGNS: Overnight, the patient was noted to have vital signs with T-max of 98.3, heart rate of 81 to 99, respirations of 16 to 18, and blood pressure of 144 to 169 over 90 to 111. GENERAL: The patient is well developed, well nourished, in no acute distress. CARDIOVASCULAR: Regular rate and rhythm. No carotid bruits were otherwise auscultated. PULMONARY: Examination was clear to auscultation bilaterally. NEUROLOGICAL: Generally, the patient is alert and oriented to person, place, year, and month. Follows simple and 2-step commands. No dysarthria. No aphasia. Intact Consultation Report [facility] [address]. [address] NAME: BYRON ROBERTS JR : 70 STATUS : ADM IN PAT#: [id number] AGE: 46 ADM/REG DATE : 01/09/17 MR#: [id number] REPORT SERV DATE: 01/09/17 DICTATED BY: DATE: REPORT STATUS : Draft TRANSCRIBED BY: DEZ DATE: 01/09/17 registration. Some difficulties with recall. Cranial nerves 2 through 12, pupils equal, round, and reactive to light. Funduscopic examination demonstrated no papilledema. Extraocular eye movement was noted to be intact. Intact peripheral vision. No visual neglect was otherwise appreciated. Symmetrical facial expression and sensation. Midline tongue. Normal palatal movement. No significant decrease in hearing in bilateral ears. 5/5 right upper extremity strength; 3 to 4/5 left upper extremity internet marketing consultant strength but otherwise 5/5 left upper extremity proximal strength; 5/5 bilateral lower extremity strength at the time of evaluation. Reports decreased sensation in the left lower extremity which appeared to be chronic, otherwise symmetrical sensation in bilateral upper extremity. Normal [id number] examination without ataxia. Gait was not evaluated secondary to worsening headache with standing. LABORATORY STUDIES: Demonstrated white blood cell count of 6.5, hemoglobin of 13.3, hematocrit 36.6, and platelet count of 194. Chemistry panel: Sodium of 137, potassium 3.5, chloride 104, bicarb 26, BUN of 10, and creatinine of 0.93. Glucose of 235, calcium of 8.6, and magnesium 1.8. Hemoglobin A1c of 7.9 at the time of evaluation. The patient does have MRI of the brain which demonstrated no significant acute process at the time of evaluation. MRA of the head demonstrated no significant arthrosclerotic disease. IMPRESSION: Headache and cervical pain over the past 6 to 7 days, worse with standing. Complains of mild nausea and occasional photophobia and phonophobia associated with the headache. Concern for possible low pressure headache especially given history of recent C- spine surgery. We will check lumbar puncture with opening pressure. We will start the patient on trial of Depakote. In addition we will try to obtain C-spine MRI imaging study for evaluation. RECOMMENDATIONS: 1. Lumbar puncture with opening pressure by Radiology. 2. Depakote 125 mg IV b.i.d. 3. CSF for protein, glucose, cell count with differential, HSV PCR, Gram stain and bacterial culture. 4. MRI of the C-spine without contrast. [facility]/MODL Lenin Espino MD / [id number] CC: Roe Nielsen
--- NOTE | ~2017-01-08 | EGD ---
EGD REPORT [facility] [address] [address] NAME: JERONIMO BLANCHARD JR : 70 STATUS : ADM IN PAT#: [id number] AGE: 46 ADM/REG DATE : 01/09/17 MR#: [id number] REPORT SERV DATE: 01/13/17 DICTATED BY: NOAM ZHANG DATE: 01/13/17 REPORT STATUS : Draft TRANSCRIBED BY: [facility] DATE: 01/13/17 Endoscopy Center Patient Name: Jeronimo Blanchard Date of : 1970 Attending MD: NOAM ZHANG MD Procedure Date No Time: 01/13/2017 Procedure: Upper GI endoscopy Indications: Nausea with vomiting Medicines: Propofol per Anesthesia Complications: No immediate complications. Procedure: Pre-Anesthesia Assessment: - ASA Grade Assessment: III - A patient with severe systemic disease. After obtaining informed consent, the endoscope was passed under direct vision. Throughout the procedure, the patient's blood pressure, pulse, and oxygen saturations were monitored continuously. The GIF H190 [id number] was introduced through the mouth, and advanced to the third part of duodenum. The upper GI endoscopy was accomplished without difficulty. The patient tolerated the procedure well. Findings: The cardia and gastric fundus were normal on retroflexion. The esophagus was normal. The stomach was normal. The examined duodenum was normal. Impression: - Normal esophagus. - Normal stomach. - Normal examined duodenum. Procedure Code(s): --- Professional --- 69446, Esophagogastroduodenoscopy, flexible, transoral; diagnostic, including collection of specimen(s) by brushing or washing, when performed (separate procedure) Diagnosis Code(s): --- Professional --- R11.2, Nausea with vomiting, unspecified CPT copyright 2013 [employer] [place] [employer]. All rights reserved. The codes documented in this report are preliminary and upon distiller review may be revised to meet current compliance requirements. EGD REPORT [facility] [address] [address] NAME: JERONIMO BLANCHARD JR : 70 STATUS : ADM IN [facility]#: [id number] AGE: 46 ADM/REG DATE : 01/09/17 MR#: [id number] REPORT SERV DATE: 01/13/17 DICTATED BY: NOAM ZHANG DATE: 01/13/17 REPORT STATUS : Draft TRANSCRIBED BY: [employer] DATE: 01/13/17 NOAM ZHANG MD 01/13/2017 10:15 AM This report has been signed electronically. Number of Addenda: 0 Note Initiated On: 01/13/2017 9:12 AM Scope Withdrawal Time 0 hours 0 minutes 0 seconds [address] [address]
[2017-01-08 23:22] LABS: BASOPHILS 0.4 %; BASOPHILS ABSOLUTE 0.03 10/3/uL (0.0-0.16); EOSINOPHILS 1.7 %; EOSINOPHILS ABSOLUTE 0.12 10/3/uL (0.0-0.53); HEMOGLOBIN 14.2 g/dL (13.6-17.8); IMMATURE GRANULOCYTES 0.7 %; IMMATURE GRANULOCYTES ABSOLUTE 0.05 10/3/uL (0.0-0.11); LYMPHOCYTES 21.1 %; LYMPHOCYTES ABSOLUTE 1.49 10/3/uL (0.67-4.30); MEAN CORPUSCULAR HEMOGLOB 33.7 pg (26.0-34.0); MONOCYTES 6.5 %; MONOCYTES ABSOLUTE 0.46 10/3/uL (0.21-1.20); NEUTROPHILS 69.6 %; PLATELET COUNT 230 10/3/uL (150-400); RBC DISTRIBUTION WIDTH 12.6 % (12.0-16.0); RED CELL COUNT 4.21 10/6/uL (4.7-6.1); WHITE BLOOD CELLS 7.1 10/3/uL (4.5-10.5)
[2017-01-08 23:35] LABS: PARTIAL THROMBO TIME 29.1 SEC (22.5-37.2); PROTIME (NOT ORD) 13.3 SEC (12.0-14.5)
[2017-01-08 23:40] LABS: HEMATOCRIT 40 % (40.0-51.0); MANUAL DIFF NO %; MEAN CORPUS HGB CONC 37.5 g/dL (32.0-36.0)
[2017-01-08 23:42] LABS: CALCIUM, SERUM 8.1 MG/DL (8.5-10.4); CHEST PAIN PROFILE TAT 0 Hrs 26 Mins; CHLORIDE, SERUM 103 MMOL/L (96-112); CO2 (CARBON DIOXIDE) 24 MMOL/L (24-34); CREATININE 1.32 MG/DL (0.70-1.30); GFR AFRICAN AMERICAN 74 ML/MIN (>=60); GFR NON AFRICAN AMERICAN 64 ML/MIN (>=60); GLUCOSE, SERUM 399 MG/DL (60-99); SODIUM, SERUM 136 MMOL/L (135-148); TROPONIN I <0.02 NG/ML (<0.05)
[2017-01-08 23:43] LABS: BUN (BLOOD UREA NITROGEN) 13 MG/DL (6-23)
[2017-01-09 02:15] LABS: LACTATE 0.8 MMOL/L (0.3-2.4)
[2017-01-09] MEDS ORDERED: NORV10 PO (02:53)
[2017-01-09] MEDS ORDERED: LIOR10 PO (02:55)
[2017-01-09] MEDS ORDERED: PROZAC40 MG PO (02:56)
[2017-01-09] MEDS ORDERED: NEUR300 PO (02:56)
[2017-01-09] MEDS ORDERED: V5 PO (02:56)
[2017-01-09] MEDS ORDERED: PR25 PO (02:57)
[2017-01-09] MEDS ORDERED: NORCO1 TA2 PO (02:57)
[2017-01-09] MEDS ORDERED: SEROQUEL50 MG PO (02:58)
[2017-01-09] MEDS ORDERED: DOX25 PO (02:59)
[2017-01-09] MEDS ORDERED: AMB10 PO (02:59)
[2017-01-09] MEDS ORDERED: PRIN10 PO (03:00)
[2017-01-09] MEDS ORDERED: IBU800 PO (03:00)
[2017-01-09] MEDS ORDERED: GLUCPH PO (03:01)
[2017-01-09] MEDS ORDERED: LANTUSCART SC (03:02)
[2017-01-09] MEDS ORDERED: KLONO5 PO (03:04)
[2017-01-09] MEDS ORDERED: DIL2TAB PO (03:04)
[2017-01-09 11:33] LABS: BASOPHILS 0.2 %; BASOPHILS ABSOLUTE 0.01 10/3/uL (0.0-0.16); EOSINOPHILS 2.2 %; EOSINOPHILS ABSOLUTE 0.14 10/3/uL (0.0-0.53); HEMATOCRIT 36.6 % (40.0-51.0); HEMOGLOBIN 13.3 g/dL (13.6-17.8); IMMATURE GRANULOCYTES 0.8 %; IMMATURE GRANULOCYTES ABSOLUTE 0.05 10/3/uL (0.0-0.11); LYMPHOCYTES 28.1 %; LYMPHOCYTES ABSOLUTE 1.81 10/3/uL (0.67-4.30); MEAN CORPUS HGB CONC 36.3 g/dL (32.0-36.0); MEAN CORPUSCULAR HEMOGLOB 32.8 pg (26.0-34.0); MEAN CORPUSCULAR VOLUME 90.4 fL (80-100); MEAN PLATELET VOLUME 9.7 fL (9.2-13.0); MONOCYTES 6.7 %; MONOCYTES ABSOLUTE 0.43 10/3/uL (0.21-1.20); NEUTROPHILS ABSOLUTE 4.01 10/3/uL (2.02-8.40); PLATELET COUNT 194 10/3/uL (150-400); RBC DISTRIBUTION WIDTH 12.7 % (12.0-16.0); RED CELL COUNT 4.05 10/6/uL (4.7-6.1); WHITE BLOOD CELLS 6.5 10/3/uL (4.5-10.5)
[2017-01-09 11:35] LABS: MANUAL DIFF NO %
[2017-01-09 11:54] LABS: INTERNATIONAL NORMAL RATI 1.1 UNITS (-); PROTIME (NOT ORD) 13.7 SEC (12.0-14.5)
[2017-01-09 11:56] LABS: A/G RATIO 0.9 (0.7-1.9); ALBUMIN 3.3 G/DL (3.5-5.0); ALKALINE PHOSPHATASE 92 U/L (45-117); BUN (BLOOD UREA NITROGEN) 10 MG/DL (6-23); CALCIUM, SERUM 8.6 MG/DL (8.5-10.4); CHLORIDE, SERUM 104 MMOL/L (96-112); CO2 (CARBON DIOXIDE) 26 MMOL/L (24-34); CREATININE 0.93 MG/DL (0.70-1.30); FREE T4 0.76 NG/DL (0.76-1.46); GFR AFRICAN AMERICAN 114 ML/MIN (>=60); GFR NON AFRICAN AMERICAN 98 ML/MIN (>=60); GLOBULIN 3.5 G/DL (2.5-4.1); GLUCOSE, SERUM 235 MG/DL (60-99); POTASSIUM, SERUM 3.5 MMOL/L (3.5-5.3); PROLACTIN 3.2 NG/ML (2.5-17.4); SGOT(AST) 34 U/L (5-40); SGPT(ALT) 47 U/L (5-65); SODIUM, SERUM 137 MMOL/L (135-148); TOTAL BILIRUBIN 0.3 MG/DL (0-1.2); TOTAL PROTEIN 6.8 G/DL (6.0-8.5)
[2017-01-09 12:34] LABS: GLYCOHEMOGLOBIN (HbA1c) 7.9 % (4.7-6.1)
[2017-01-09 13:05] LABS: B NATRIURETIC PEPTIDE (BNP) 14.3 PG/ML (< 100.0)
[2017-01-09 16:09] LABS: ASCORBIC ACID (UR NOT ORDER) NEG (NEG); BILIRUBIN, URINE NEGATIVE (NEG); KETONE, URINE NEGATIVE (NEG); LEUKOCYTE ESTERASE(NOT OR NEG (NEG); WBC (NOT ORDERED) (RFLEX) 1 (0-5)
[2017-01-10 05:41] LABS: HEMATOCRIT 38.2 % (40.0-51.0); HEMOGLOBIN 13.9 g/dL (13.6-17.8); MEAN CORPUS HGB CONC 36.4 g/dL (32.0-36.0); MEAN CORPUSCULAR HEMOGLOB 33.3 pg (26.0-34.0); MEAN CORPUSCULAR VOLUME 91.4 fL (80-100); MEAN PLATELET VOLUME 10.2 fL (9.2-13.0); PLATELET COUNT 202 10/3/uL (150-400); RBC DISTRIBUTION WIDTH 12.8 % (12.0-16.0); RED CELL COUNT 4.18 10/6/uL (4.7-6.1); WHITE BLOOD CELLS 6.3 10/3/uL (4.5-10.5)
[2017-01-10 05:46] LABS: MANUAL DIFF YES %
[2017-01-10 05:55] LABS: ALBUMIN 3.4 G/DL (3.5-5.0); BUN (BLOOD UREA NITROGEN) 9 MG/DL (6-23); CALCIUM, SERUM 8.9 MG/DL (8.5-10.4); CHLORIDE, SERUM 107 MMOL/L (96-112); CO2 (CARBON DIOXIDE) 25 MMOL/L (24-34); CREATININE 0.88 MG/DL (0.70-1.30); GFR AFRICAN AMERICAN 119 ML/MIN (>=60); GFR NON AFRICAN AMERICAN 103 ML/MIN (>=60); PHOSPHORUS, SERUM 3.1 MG/DL (2.5-4.5); POTASSIUM, SERUM 3.5 MMOL/L (3.5-5.3); SODIUM, SERUM 141 MMOL/L (135-148)
[2017-01-10 05:56] LABS: GLUCOSE, SERUM 134 MG/DL (60-99)
[2017-01-10 06:15] LABS: EOSINOPHILS 6 %; EOSINOPHILS ABSOLUTE (CALC) 0.38 10/3/uL (0.0-0.53); LYMPHOCYTES 32 %; LYMPHOCYTES ABSOLUTE (CALC) 2.02 10/3/uL (0.67-4.30); MONOCYTES 4 %; MONOCYTES ABSOLUTE (CALC) 0.25 10/3/uL (0.21-1.20); NEUTROPHILS ABSOLUTE (CALC) 3.65 10/3/uL (2.02-8.40); PLATELET ESTIMATE ADQ (ADEQUATE); RBC MORPHOLOGY NORM (NORMAL); SEGMENTED NEUTROPHIL (0) 58 %; TOTAL NUCLEATED CELLS 100
[2017-01-10 11:08] LABS: CSF APPEARANCE (NOT ORD) CLEAR (CLEAR); CSF BASO 0 % (NO REF RANGE); CSF COLOR (NOT ORD) COLORLESS (COLORLESS); CSF EOS 0 % (0-1); CSF LYMPH (NOT ORD) 94 % (28-96); CSF MONO 6 % (16-56); CSF RBC (NOT ORD) 11 MM3 (NO REFERENCE); CSF SEGS (NOT ORD) 0 % (0-7); CSF WBC (NOT ORD) 2 /uL (0-10); CSF XANTHROCHROMIA NEG (NEG)
[2017-01-11 05:45] LABS: CALCIUM, SERUM 8.5 MG/DL (8.5-10.4); CHLORIDE, SERUM 106 MMOL/L (96-112); CO2 (CARBON DIOXIDE) 27 MMOL/L (24-34); GFR AFRICAN AMERICAN 93 ML/MIN (>=60); GFR NON AFRICAN AMERICAN 80 ML/MIN (>=60); POTASSIUM, SERUM 3.7 MMOL/L (3.5-5.3); SODIUM, SERUM 140 MMOL/L (135-148)
[2017-01-11 05:47] LABS: BUN (BLOOD UREA NITROGEN) 16 MG/DL (6-23); GLUCOSE, SERUM 226 MG/DL (60-99)
[2017-01-12 05:31] LABS: CALCIUM, SERUM 8.6 MG/DL (8.5-10.4); CHLORIDE, SERUM 107 MMOL/L (96-112); CO2 (CARBON DIOXIDE) 25 MMOL/L (24-34); CREATININE 0.93 MG/DL (0.70-1.30); GFR AFRICAN AMERICAN 114 ML/MIN (>=60); GFR NON AFRICAN AMERICAN 98 ML/MIN (>=60); POTASSIUM, SERUM 3.5 MMOL/L (3.5-5.3); SODIUM, SERUM 141 MMOL/L (135-148)
[2017-01-12 05:33] LABS: BUN (BLOOD UREA NITROGEN) 12 MG/DL (6-23); GLUCOSE, SERUM 125 MG/DL (60-99)
[2017-01-12 19:10] LABS: HSV DNA TYPE 1 Not Detected (NOTDET); HSV DNA TYPE 2 Not Detected (NOTDET)
[2017-01-13 05:19] LABS: INTERNATIONAL NORMAL RATI 1.1 UNITS (-); PARTIAL THROMBO TIME 29.5 SEC (22.5-37.2); PROTIME (NOT ORD) 13.7 SEC (12.0-14.5)
[2017-01-13] MEDS ORDERED: LIDODERM TOP (13:39)
== END 2017-01-13 12:00 | disposition home or self-care (01) | DRG 103 ==
LOC: ER 22:56 → 5NO 01-09 03:10
PROVIDERS: Emergency Medicine; Hospitalist; Internal Medicine; Internal Medicine Gastroenterology; Psychiatry & Neurology Neurology; Specialist
PROC: 0DJ08ZZ Inspection of Upper Intestinal Tract, Via Natural or Artificial Opening Endoscopic (ICD-10-PCS; principal; 2017-01-13 10:00)
DX: R51 Headache (principal); E11.40 Type 2 diabetes mellitus with diabetic neuropathy, unspecified; K76.0 Fatty (change of) liver, not elsewhere classified; R42 Dizziness and giddiness; R55 Syncope and collapse; E11.65 Type 2 diabetes mellitus with hyperglycemia; I25.10 Atherosclerotic heart disease of native coronary artery without angina pectoris; Z95.5 Presence of coronary angioplasty implant and graft; G89.29 Other chronic pain; F41.9 Anxiety disorder, unspecified; R39.15 Urgency of urination; R26.9 Unspecified abnormalities of gait and mobility; M54.9 Dorsalgia, unspecified; K21.9 Gastro-esophageal reflux disease without esophagitis; I10 Essential (primary) hypertension; M79.7 Fibromyalgia; M19.90 Unspecified osteoarthritis, unspecified site; E66.9 Obesity, unspecified; R11.2 Nausea with vomiting, unspecified; F43.10 Post-traumatic stress disorder, unspecified; Z68.39 Body mass index [BMI] 39.0-39.9, adult
CPT/HCPCS: 62270; 70548; 70553; 71020; 72141; 72148; 76705; 76775; 77003; 78264; 80048; 80053; 80069; 81001; 82009; 82150; 82533; 82945; 82962; 83036; 83605; 83735; 83880; 84146; 84157; 84439; 84443; 84484; 85025; 85049; 85379; 85610; 85730; 87040; 87070; 87205; 87529; 87529-59; 89051; 93005; 95819; 99285; A9270-GY; A9541; A9577; J1170; J1885; J2550